=== PATIENT | female | born 1990 | race Caucasian/White ===

== ENCOUNTER 2017-06-24 14:17 | Observation (INO) ==
[2017-06-24 12:55] LABS: Bilirubin,Urine Small (Negative); Blood,Urine Negative (Negative); Color,Urine Yellow (Yellow); Glucose,Urine (UA) Normal (Normal); Ketones,Urine >=160 mg/dL (Negative); Leukocyte Esterase,Urine Small (Negative); Nitrite,Urine Negative (Negative); Protein,Urine 30 mg/dL (Neg-Trace); Specific Gravity,Urine 1.025 (1.010-1.025); Urobilinogen,Urine Normal (Normal)
[2017-06-24] MEDS: Ringers Solution, Lactated 1,000 ML IVC SCH (13:00)
[2017-06-24] MEDS: Ondansetron 4 MG/2 ML VIAL IVP SCH (13:00)
[2017-06-24 13:01] LABS: Basophils # 0.1 K/mcL (0.0-0.2); Basophils % 0.4 %; Eosinophils % 0.1 %; Hemoglobin 13.9 g/dL (11.5-15.4); Immature Granulocytes % 1.4 % (0-4); Lymphocytes # 0.6 K/mcL (0.6-4.6); Lymphocytes % 3.3 %; Mean Corpuscular HGB Conc 33.9 g/dL (31.6-35.5); Mean Corpuscular Hemoglobin 28.3 pg (28.0-33.3); Mean Corpuscular Volume 83.5 fL (83.0-100.0); Monocytes # 0.6 K/mcL (0.0-1.3); Neutrophils # 16.7 K/mcL (1.6-8.9); Platelet Count 237 K/mcL (140-400); Red Blood Count 4.91 M/mcL (3.82-4.97); Red Cell Distribution Width 12.9 % (11.5-14.5); Segmented Neutrophils % 91.8 %
--- NOTE | 2017-06-24 13:01 | OB/GYN History & Physical ---
Date of Encounter: 06/24/17 Time of Encounter: 12:52 Assessment and Plan (1) Vomiting and diarrhea Current visit: Yes Status: Acute Patient reports Vomiting and Diarrhea since 0200 this morning. LR bolus Zofran CBC BMP Urinalysis UDS monitoring (2) 34 weeks gestation of Current visit: Yes Status: Acute Patient is 34w1d History of Present Illness Chief complaint: vomiting HPI: Ms. Bernard is a 27 year old female at 34w1d present to L&D for vomiting and diarrhea. She states that this has been present since 0200 this morning. She states the vomiting has been worse than the diarrhea. She states that she has been vomiting every half hour. States that her was sick with the same thing last night but has resolved. Denies any blood in her vomit or stool. Denies any contractions, loss of fluid, vaginal bleeding or discharge. Denies any complications with the . Reports good movement but is variable which is normal for her. States that she is having some upper abdominal pain since she has been vomiting. Blood type-O Positive T Pallidum-Negative HIV negative Rubella IgG Antibody Positive Varicella IgG antibody Positive Hep B Nonreactive N Gonorrhoeae not detected Chlamydia Negative I examined this patient and my medical decision-making was reviewed with the Resident Physician. I agree with the documented findings, disposition and treatment plan as described except to the extent set forth below. MAGDALENE Taylor Past Med Surg Social Fam HX - Past Medical History Medical history: no medical history Psychiatric history: no psych history - Past Surgical History Surgical History: other - Social History Smoking Status: Never smoker Alcohol use: none Drug use: none - Family History Father Hx Family Cardiac Disorders: Yes (HTN) Obstetrical History - Pregnancies : 2 Para: 1 Livin - History/Complications History/Complications: C section for her first Medications and Allergies Pnv95/Iron Fum/Folic Acid [ Caplet] 1 each PO DAILY 11/19/15 [History] 3 Allergy/AdvReac Type Severity Reaction Status Date / Time No Known Allergies Allergy Verified 11/19/15 17:12 Review of System OB All systems PM: reviewed and no additional remarkable complaints except as stated - Gastrointestinal Gastrointestinal: abdominal pain (Upper abdominal pain from vomiting), diarrhea , nausea, vomiting Exam - Constitutional Constitutional: well developed, well nourished, no acute distress, average body habitus - HEENT HEENT: Mucus Membranes Moist - Neck Neck exam: full ROM, normal inspection - Lungs Respiratory exam: CTAB - Cardiovascular Cardiovascular exam: RRR, +S1, +S2 - Abdomen Abdomen: Present: bowel sounds normal, gravid. Absent: non tender (Upper abdominal tenderness ) - Extremities Extremities exam: full ROM Results Result Diagrams: 06/24/17 12:43 06/24/17 12:43 All other labs normal. - VTE Reasons for not Prescribing Prophylaxis: Treatment not Indicated - Low risk for VTE
[2017-06-24 13:03] LABS: Carbon Dioxide 18 mEq/L (19-29); Chloride 106 mEq/L (98-109); Potassium 3.7 mEq/L (3.5-4.5); Sodium 137 mEq/L (136-145)
[2017-06-24 13:04] LABS: Clarity,Urine Hazy (Clear)
[2017-06-24 13:07] LABS: Bacteria,Urine Moderate per hpf (None-Few); Mucus,Urine Moderate (Few); RBC,Urine 0-3 per hpf (0-3); Squamous Epithelial Cell,Urine Many per lpf (None-Few); WBC,Urine 15-30 per hpf (0-3)
[2017-06-24 13:08] LABS: Amorphous Sediment,Urine Few (Few)
[2017-06-24 13:18] LABS: Amphetamine Screen,Urine Negative ng/mL (Cutoff=1000); Barbiturate Screen,Urine Negative ng/mL (Cutoff=200); Benzodiazepines Screen,Urine Negative ng/mL (Cutoff=200); Cannabinoid Screen,Urine Negative ng/mL (Cutoff = 50); Cocaine Screen,Urine Negative ng/mL (Cutoff= 300); Opiate Screen,Urine Negative ng/mL (Cutoff=300); Phencyclidine Screen,Urine Negative ng/mL (Cutoff=25)
[~2017-06-24 14:17] MED LIST: Ondansetron 4 MG/2 ML VIAL ONE; Promethazine 50 MG in Ringers Solution, Lactated 1,000 ML IVPB SCH; Ringers Solution, Lactated 1,000 ML IVC SCH; Ringers Solution, Lactated 1,000 ML ONE
[2017-06-24] MEDS ORDERED: Acetaminophen 325 MG TABLET PO PRN (17:03)
--- NOTE | 2017-06-24 19:34 | OB/GYN Progress Note ---
Date of Encounter: 06/24/17 Time of Encounter: 18:58 - Assessment and Plan (1) Vomiting and diarrhea Current Visit: Yes Status: Acute Patient reports Vomiting and Diarrhea since 0200 this morning. LR bolus Zofran CBC BMP Urinalysis UDS monitoring (2) 34 weeks gestation of Current Visit: Yes Status: Acute Patient is 34w1d Subjective - Subjective Principal diagnosis: Vomiting and diarrhea Interval history: Patient in bed. Patient tolerating advanced diet but reports she overall doesn' t feel well. Patient has not had any diarrhea since leaving her house earlier today. Patient has not vomited since being in labor and delivery. Patient denies urinary symptoms, abdominal tenderness, SOB, cough or sore throat. Patient has a noted low grade fever despite 650mg po Acetaminophen. Will swab for influenza at this time. Patient reports +FM, denies contractions or abdominal cramping. Discussed patient with Dr. Jimenes. No new orders at this time. Antepartum ROS: movement normal, no loss of fluid, no vaginal bleeding, no contractions Objective - Vital Signs Vital Signs: Vital Signs Temp Pulse Resp BP Pulse Ox 06/24/17 18:58 100.9 F H 06/24/17 17:07 100.3 F H 130 14 120/71 99 06/24/17 14:30 98.8 F 112 14 117/69 97 Intake and Output 06/24/17 06/24/17 06/24/17 07:59 15:59 23:59 Intake Total 35 / 35 Balance 35 / 35 Intake: Oral 35 / 35 Other: Weight 110.2 kg Patient Weight 06/24/17 23:59 Weight 110.2 kg - Labs Labs: Abnormal lab results WBC 18.2 K/mcL (4.3-11.1) H 06/24/17 12:43 Neutrophils # 16.7 K/mcL (1.6-8.9) H 06/24/17 12:43 Carbon Dioxide 18 mEq/L (19-29) L 06/24/17 12:43 Urine Clarity Hazy (Clear) A 06/24/17 12:43 Urine Protein 30 mg/dL (Neg-Trace) H 06/24/17 12:43 Urine Ketones >=160 mg/dL (Negative) H 06/24/17 12:43 Urine Bilirubin Small (Negative) H 06/24/17 12:43 Ur Leukocyte Esterase Small (Negative) H 06/24/17 12:43 Urine Microscopic WBC 15-30 per hpf (0-3) H 06/24/17 12:43 Ur Squamous Epith Cells Many per lpf (None-Few) H 06/24/17 12:43 Urine Bacteria Moderate per hpf (None-Few) H 06/24/17 12:43 Urine Mucus Moderate (Few) H 06/24/17 12:43 Ur Culture Indicated? YES (NO) A 06/24/17 12:43
[2017-06-24] MEDS ORDERED: Pyridoxine (B-6) 50 MG in Ringers Solution, Lactated 1,000 ML IVPB SCH (20:00)
[2017-06-24] MEDS ORDERED: Ringers Solution, Lactated 500 ML IVC ONE (20:11)
[2017-06-25] MEDS: Ondansetron 4 MG/2 ML VIAL IVP SCH ×2 (01:29→06:12)
[2017-06-25] MEDS: Ringers Solution, Lactated 1,000 ML IVC SCH (07:06)
--- NOTE | 2017-06-25 08:31 | Discharge Summary ---
Date of Encounter: 06/25/17 Time of Encounter: 08:31 - Discharge Diagnosis (1) Vomiting and diarrhea Priority: Primary Status: Acute Comments: Patient states that she is doing much better. She denies any nause, vomiting or diarrhea at this time. States that she has been able to eat and drink without any issues. Denies any contractions, loss of fluid or vaginal bleeding. Reports good movement Patient will be discharged home Continue to drink fluids Zofran q8hr prn for nausea at home. (2) 34 weeks gestation of Priority: Secondary Status: Acute Comments: Patient is 34w2d. - Discharge Medications Prescriptions: Ondansetron [Zofran] 4 mg PO Q8HR PRN #6 vial PRN Reason: Nausea Home Medications: Pnv95/Iron Fum/Folic Acid [ Caplet] 1 each PO DAILY 11/19/15 [History] Ondansetron [Zofran] 4 mg PO Q8HR PRN #6 vial 06/25/17 [Rx] Allergies/Adverse Reactions: 3 Allergy/AdvReac Type Severity Reaction Status Date / Time No Known Allergies Allergy Verified 11/19/15 17:12 Data Procedures and tests throughout hospitalization: Laboratory Tests 06/24/17 06/24/17 06/24/17 12:43 12:43 12:43 WBC 18.2 H RBC 4.91 Hgb 13.9 Hct 41.0 MCV 83.5 MCH 28.3 MCHC 33.9 RDW 12.9 Plt Count 237 MPV 10.0 Immature Gran % 1.4 Seg Neutrophils % 91.8 Lymphocytes % 3.3 Monocytes % 3.0 Eosinophils % 0.1 Basophils % 0.4 Neutrophils # 16.7 H Lymphocytes # 0.6 Monocytes # 0.6 Eosinophils # 0.0 Basophils # 0.1 Sodium Potassium Chloride Carbon Dioxide Urine Color Yellow Urine Clarity Hazy A Urine pH 6.0 Ur Specific [place] 1.025 Urine Protein 30 H Urine Glucose (UA) Normal Urine Ketones >=160 H Urine Blood Negative Urine Nitrite Negative Urine Bilirubin Small H Urine Urobilinogen Normal Ur Leukocyte Esterase Small H Urine Microscopic RBC 0-3 Urine Microscopic WBC 15-30 H Ur Squamous Epith Cells Many H Amorphous Sediment Few Urine Bacteria Moderate H Urine Mucus Moderate H Ur Culture Indicated? YES A Urine Opiates Screen Negative Ur Barbiturates Screen Negative Ur Phencyclidine Scrn Negative Ur Amphetamines Screen Negative U Benzodiazepines Scrn Negative Urine Cocaine Screen Negative U Marijuana (THC) Screen Negative 06/24/17 12:43 WBC RBC Hgb Hct MCV MCH MCHC RDW Plt Count MPV Immature Gran % Seg Neutrophils % Lymphocytes % Monocytes % Eosinophils % Basophils % Neutrophils # Lymphocytes # Monocytes # Eosinophils # Basophils # Sodium 137 Potassium 3.7 Chloride 106 Carbon Dioxide 18 L Urine Color Urine Clarity Urine pH Ur Specific [place] Urine Protein Urine Glucose (UA) Urine Ketones Urine Blood Urine Nitrite Urine Bilirubin Urine Urobilinogen Ur Leukocyte Esterase Urine Microscopic RBC Urine Microscopic WBC Ur Squamous Epith Cells Amorphous Sediment Urine Bacteria Urine Mucus Ur Culture Indicated? Urine Opiates Screen Ur Barbiturates Screen Ur Phencyclidine Scrn Ur Amphetamines Screen U Benzodiazepines Scrn Urine Cocaine Screen U Marijuana (THC) Screen Labs on day of discharge: Labs from last 24 hours 06/24/17 06/24/17 06/24/17 12:43 12:43 12:43 WBC 18.2 H RBC 4.91 Hgb 13.9 Hct 41.0 MCV 83.5 MCH 28.3 MCHC 33.9 RDW 12.9 Plt Count 237 MPV 10.0 Immature Gran % 1.4 Seg Neutrophils % 91.8 Lymphocytes % 3.3 Monocytes % 3.0 Eosinophils % 0.1 Basophils % 0.4 Neutrophils # 16.7 H Lymphocytes # 0.6 Monocytes # 0.6 Eosinophils # 0.0 Basophils # 0.1 Sodium 137 Potassium 3.7 Chloride 106 Carbon Dioxide 18 L Urine Color Yellow Urine Clarity Hazy A Urine pH 6.0 Ur Specific [place] 1.025 Urine Protein 30 H Urine Glucose (UA) Normal Urine Ketones >=160 H Urine Blood Negative Urine Nitrite Negative Urine Bilirubin Small H Urine Urobilinogen Normal Ur Leukocyte Esterase Small H Urine Microscopic RBC 0-3 Urine Microscopic WBC 15-30 H Ur Squamous Epith Cells Many H Amorphous Sediment Few Urine Bacteria Moderate H Urine Mucus Moderate H Ur Culture Indicated? YES A Urine Opiates Screen Ur Barbiturates Screen Ur Phencyclidine Scrn Ur Amphetamines Screen U Benzodiazepines Scrn Urine Cocaine Screen U Marijuana (THC) Screen 06/24/17 12:43 WBC RBC Hgb Hct MCV MCH MCHC RDW Plt Count MPV Immature Gran % Seg Neutrophils % Lymphocytes % Monocytes % Eosinophils % Basophils % Neutrophils # Lymphocytes # Monocytes # Eosinophils # Basophils # Sodium Potassium Chloride Carbon Dioxide Urine Color Urine Clarity Urine pH Ur Specific [place] Urine Protein Urine Glucose (UA) Urine Ketones Urine Blood Urine Nitrite Urine Bilirubin Urine Urobilinogen Ur Leukocyte Esterase Urine Microscopic RBC Urine Microscopic WBC Ur Squamous Epith Cells Amorphous Sediment Urine Bacteria Urine Mucus Ur Culture Indicated? Urine Opiates Screen Negative Ur Barbiturates Screen Negative Ur Phencyclidine Scrn Negative Ur Amphetamines Screen Negative U Benzodiazepines Scrn Negative Urine Cocaine Screen Negative U Marijuana (THC) Screen Negative Date of admission: 06/24/17 12:11 Primary care physician: Freida Chahal CNP Discharging clinician: Ruben Guerra Anticipated date of discharge: 06/25/17 - Patient Status Disposition: Home, Self-Care Condition: Good Functional capacity at discharge: independent ambulation Overall status at discharge: patient is back to baseline - Discharge Instructions Instructions: Acute Nausea and Vomiting (DC) Follow Up With: Freida Chahal CNP [Primary Care Provider] - - Diet and Activity Activity: resume usual activities as tolerated Diet: advance to your usual diet 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: other (Vomiting and diarrhea) Discharge diagnosis: other (Vomiting and Diarrhea) Time Attestation: Total time spent providing and/or coordinating discharge services: Time Spent: Less than 30 minutes Exam - Constitutional Vitals: Temp Pulse Resp BP Pulse Ox 98.0 F 101 16 113/62 97 06/25/17 05:30 06/25/17 05:30 06/25/17 05:30 06/25/17 05:30 06/25/17 05:30 General appearance IM: A&O X 3 - Respiratory Respiratory exam: Present: CTAB - Cardiovascular Cardiovascular exam IM: Present: RRR, +S1, +S2 - GI/Abdominal GI/Abdominal exam IM: normal bowel sounds - Extremities Exam Extremities exam IM: Present: full ROM, normal capillary refill, normal inspection. Absent: calf tenderness - Neurological Exam Neurological exam: alert, oriented X3 - VTE Reasons for not Prescribing Prophylaxis: Treatment not Indicated - Low risk for VTE
[2017-06-25 08:47] VITALS: BP 115/75
[2017-06-25 08:48] LABS: BUN/Creatinine Ratio 12 (6-26); Blood Urea Nitrogen 8 mg/dL (7-20); Calcium 8.6 mg/dL (8.6-10.8); Glucose 96 mg/dL (70-99); Osmolality,Calculated 282 (280-300); eGFR For African Americans > 60 (> 60); eGFR For Non-African Americans > 60 (> 60)
== END 2017-06-25 10:27 | disposition home or self-care (01) ==
LOC: 1NENULAB → 1NENUOBS 14:17
PROVIDERS: ADMIT Obstetrics & Gynecology; ATTEND Obstetrics & Gynecology

== ENCOUNTER 2017-07-28 09:43 | Inpatient (IN) ==
[2017-07-28] MEDS ORDERED: Ringers Solution, Lactated 1,000 ML IVC ONE (09:55)
[2017-07-28] MEDS ORDERED: Oxytocin 20 units/ LR 1000 mL 20 UNIT/1,000 ML BAG IVC ONE (09:55)
[2017-07-28] MEDS ORDERED: Famotidine 20 MG/2 ML VIAL IVP ONE (09:55)
[2017-07-28] MEDS ORDERED: Metoclopramide 10 MG/2 ML VIAL IVP ONE (09:55)
[2017-07-28] MEDS ORDERED: CeFAZolin Premix DUPLEX 2,000 MG/50 ML BAG IVPB ONE (09:55)
[2017-07-28] MEDS ORDERED: Oxytocin 20 units/ LR 1000 mL 20 UNIT/1,000 ML BAG IVC SCH ×2 (10:00→17:41)
[2017-07-28] MEDS ORDERED: Ringers Solution, Lactated 1,000 ML IVC SCH ×3 (10:00→17:41)
[2017-07-28 10:19] LABS: Basophils # 0.1 K/mcL (0.0-0.2); Basophils % 0.5 %; Eosinophils # 0.2 K/mcL (0.0-0.6); Eosinophils % 1.4 %; Hematocrit 41.3 % (35.3-44.9); Hemoglobin 14.3 g/dL (11.5-15.4); Immature Granulocytes % 1.7 % (0-4); Lymphocytes # 2.4 K/mcL (0.6-4.6); Lymphocytes % 18.5 %; Mean Corpuscular HGB Conc 34.6 g/dL (31.6-35.5); Mean Corpuscular Hemoglobin 29.1 pg (28.0-33.3); Mean Corpuscular Volume 83.9 fL (83.0-100.0); Mean Platelet Volume 10.2 fL (9.4-12.4); Monocytes # 0.6 K/mcL (0.0-1.3); Monocytes % 4.8 %; Neutrophils # 9.5 K/mcL (1.6-8.9); Platelet Count 256 K/mcL (140-400); Red Blood Count 4.92 M/mcL (3.82-4.97); Red Cell Distribution Width 13.2 % (11.5-14.5); Segmented Neutrophils % 73.1 %
--- NOTE | 2017-07-28 10:35 | Anesthesia Evaluation PreOp ---
Date of Encounter: 07/28/17 Time of Encounter: 10:33 - Past History Planned Operation: repeat C/S Cardiac History: Denies any Significant Hx Pulmonary History: Denies Any Significant HX LOSS PREVENTION ASSOCIATE History: Denies Any Significant HX Other Medical History: Denies Any Significant HX Anesthesia History: No Prior Anesthetic Complications, Past Anesthesia (C/S, margo) : Yes Alcohol Use: none Drug use: none Medications and Allergies Pnv95/Iron Fum/Folic Acid [ Caplet] 1 each PO DAILY 11/19/15 [History] Ondansetron [Zofran] 4 mg PO Q8HR PRN #6 vial 06/25/17 [Rx] 3 Allergy/AdvReac Type Severity Reaction Status Date / Time No Known Allergies Allergy Verified 11/19/15 17:12 - Meds/Allergy Pre-op Review Medications Reviewed: Yes Allergies Reviewed: Yes Beta Blockers on Current Med List: No Anesthesia Results - Labs 07/28/17 10:00 Anesthesia Exam NPO (# of Hours): 12hrs - HEENT Pupil (Motor): EOMI Mallampati: II Teeth: Normal Oral Opening: Greater than 3 - LOSS PREVENTION ASSOCIATE LOC: Oriented LOSS PREVENTION ASSOCIATE Motor: Normal RUE, Normal LUE, Normal RLE, Normal LLE, Normal Face LOSS PREVENTION ASSOCIATE Sensory: Normal: RUE, LUE, RLE, LLE, Face - Cardiac Rhythm: Regular Murmur: None - Pulmonary Breath Sounds: bilateral Clear Respiratory Effort: Symmetrical Anesthesia Assess/Plan ASA Score: 1 Modified Ira Scale for Level of Consciousness: Cooperative, oriented, and tranquil Anesthetic Plan: Regional (spinal) Monitoring Plan: Standard Monitors Recovery Plan: PACU (agrees to SAB)
--- NOTE | 2017-07-28 11:13 | OB/GYN History & Physical ---
Date of Encounter: 07/28/17 Time of Encounter: 11:08 Assessment and Plan (1) 39 weeks gestation of Current visit: Yes Status: Acute Here for repeat scheduled Ancef for surgical prophylaxis monitoring - baseline 130 with variability and accels - category I (2) History of section Current visit: Yes Status: Acute Previous at term due to failure to progress. Consent obtained last week for repeat after discussing the risks, benefits,and alternatives at length. History of Present Illness Chief complaint: Scheduled HPI: Ms. Bernard is a 27 year old female at 39w0d presenting to L&D for scheduled repeat . She reports good movement. Denies contractions, LOF, vaginal bleeding, or vaginal discharge. Reports no problems with this . No other past medical history. Denies fevers, chills, headaches, blurry vision, dyspnea, abdominal pain, dysuria, or edema. Blood type O+ GBS positive Rubella Immune Varicella Immune All other serologies negative Past Med Surg Social Fam HX - Past Medical History Source: patient Medical history: no medical history Psychiatric history: no psych history - Past Surgical History Surgical History: , other - Social History Smoking Status: Never smoker Smokeless Tobacco Status: No Alcohol use: none Drug use: none - Family History Mother Living Status: Still Living Hx Family Cardiac Disorders: No Hx Family Respiratory Disorders: No Hx Family Cancer: Yes (breast cancer) Hx Family GI Disorders: No Hx Family Genitourinary Disorders: No Hx Family Endocrine Disorder: No Hx Family Musculoskeletal Disorders: No Hx Family Neuromuscular Disorders: No Hx Family Neurologic Disorders: No Hx Family HEENT Disorders: No Hx Family Autoimmune Disorders: No Hx Family Reproductive Disorders: No Hx Family Psychosocial Disorders: No Hx Family Medical Disorders: No Father Hx Family Cardiac Disorders: Yes (HTN) Obstetrical History - Pregnancies : 2 Para: 1 Term: 1 : 0 Ab's: 0 Livin Medications and Allergies Pnv95/Iron Fum/Folic Acid [ Caplet] 1 each PO DAILY 11/19/15 [History] Ondansetron [Zofran] 4 mg PO Q8HR PRN #6 vial 06/25/17 [Rx] 3 Allergy/AdvReac Type Severity Reaction Status Date / Time No Known Allergies Allergy Verified 11/19/15 17:12 Review of System OB All systems PM: reviewed and no additional remarkable complaints except as stated Exam - Constitutional Constitutional: well developed, well nourished, no acute distress, average body habitus - HEENT HEENT: Normocephaly, Mucus Membranes Moist - Lungs Respiratory exam: CTAB - Cardiovascular Cardiovascular exam: RRR, +S1, +S2 - Abdomen Abdomen: Present: bowel sounds normal, gravid, non tender - Extremities Extremities exam: normal capillary refill, normal inspection, pedal edema (mild bilaterally) - Uterus Uterus exam: Present: normal size, normal contour Results Result Diagrams: 07/28/17 10:00 Abnormal lab results WBC 13.0 K/mcL (4.3-11.1) H 07/28/17 10:00 Neutrophils # 9.5 K/mcL (1.6-8.9) H 07/28/17 10:00 All other labs normal. - Attending Attestation I examined this patient and my medical decision-making was reviewed with the Resident Physician. I agree with the documented findings, disposition and treatment plan as described. Vanessa Skinner DO
[2017-07-28] MEDS ORDERED: Morphine Sulfate/PF 5mg/10mL Vial ONE (12:20)
[2017-07-28] MEDS ORDERED: Dexamethasone 4 MG/ML VIAL ONE (12:21)
[2017-07-28] MEDS ORDERED: Ondansetron 4 MG/2 ML VIAL ONE (12:21)
[2017-07-28] MEDS ORDERED: *HR* Oxytocin 10 UNIT/ML VIAL IM ONE (12:22)
[2017-07-28] MEDS ORDERED: *HR* HYDROmorphone (PF) 1 MG/ML SYRINGE IVP PRN ×2 (12:40→14:53)
[2017-07-28] MEDS ORDERED: *HR* Promethazine 25 MG/ML VIAL IVP PRN (12:40)
[2017-07-28] MEDS ORDERED: Ondansetron 4 MG/2 ML VIAL IVP ONE (12:40)
[2017-07-28] MEDS ORDERED: EPHEDrine 50 MG/ML VIAL ONE (12:57)
[2017-07-28] MEDS ORDERED: Ringers Solution, Lactated 1,000 ML ONE (13:15)
--- NOTE | 2017-07-28 13:26 | Anesthesia Procedures ---
Date of Encounter: 07/28/17 Time of Encounter: 12:50 Procedures: Anesthesia - Epidural/Spinal Patient ID/Chart reviewed: Yes Patient examined: Yes OB Eval: Gestational age: 39 OB Eval: : 2 OB Eval: Hx Para: 2 OB Eval: Contractions: Non-stressed pattern Consent Obtained: Yes Supplemental Oxygen: None/Room Air Site Prep: Aseptic Technique, Sterile prep and drape, Povidone-Iodine 1% Patient position: upright Local Anesthetic: Lidocaine 1% Amount of Local Anesthetic used: 3 Interspace Used: L4-L5 Loss of Resistance (CURLY): No Blood: No CSF: Yes Paresthesia: No Spinal Needle Gauge: 25 Spinal Dose: Bupivicaine 0.75% morphine 250mcg Procedure: Spinal dose administered 1st pass in upright position without any immediate noted complications. VSS throughout. Vitals + FHT's: see anesthesia record
--- NOTE | 2017-07-28 14:07 | OB/GYN Procedure Note ---
Section - Date of procedure: 07/28/17 Preop diagnosis: desires repeat Post-op diagnosis: same Procedure: repeat low transverse Surgeon: Vanessa Skinner Estimated blood loss (cc): 400 Was there an diploma medical assistant present: Yes Lineman Service Or Work Dispatcher: Charlotte Nur Cpr Ambulance Driver: Robert Smith Anesthesia Type: Spinal section complications: none Disposition: L&D Recovery Room Specimens: Placenta (hold) - Infant (s) A Delivery Date: 07/28/17 Infant Delivery Time: 13:16 Presentation: vertex Gender: Female Viability: Viable Pounds: 7 Ounces: 3 Gram Weight: 3.25 kg at 1 minute: 8 at 5 minutes: 9 Shoulder Dystocia: not encountered Specimens collected: cord blood Placenta: spontaneous Cord: 3 umbilical vessels - Narrative Narrative: Patient was taken to the operative suite and placed under spinal anesthetic. She was then prepped and draped in normal sterile fashion in the dorsal supine position. Timeout was then performed. Antibiotics were given at room time. SCDs are on and active. Pfannenstiel skin incision is then made and carried through to underlying layer of fascia with the Bovie. The fascia was then incised in the midline and incision extended laterally with the Lopez scissors. The fascia was tented up and dissected off the rectus muscles sharply. The rectus muscles were in the midline and the peritoneum was tented up and entered sharply with the Metzenbaum scissors. The peritoneal incision was then extended bluntly. The bladder blade was then inserted and the vesicouterine peritoneum was entered sharply. Bladder flap was created digitally. A low transverse uterine incision was then made. The vertex was brought to the incision and fundal pressure was applied. The head was not delivered with fundal pressure and a vacuum was applied with 3 quick pop offs at 500 mm Hg. Fundal pressure was again applied with delivery of the head. There was no nuchal cord. Cord was clamped and cut. was handed to waiting nursery staff. Placenta delivered spontaneously complete and intact with a three-vessel cord. The uterus was cleared of all clots and debris using moist laparotomy sponge. The uterine incision was then closed using 0 Vicryl in a running locked fashion. A second layer of the same suture was used to obtain excellent hemostasis. The abdomen was then cleared of all clots and debris using copious irrigation. The fascial incision was then closed using 0 Vicryl in a running fashion. The subcuticular area was reapproximated with 3-0 vicryl in a running fashion.The skin was closed using 4-0 Vicryl in a subcuticular fashion. Aaron was then placed. Mother and infant taken to recovery in stable condition.
[2017-07-28] MEDS ORDERED: Ondansetron 4 MG/2 ML VIAL IVP PRN ×2 (14:53→17:41)
[2017-07-28] MEDS ORDERED: Ibuprofen 400 MG TABLET PO PRN (14:53)
[2017-07-28] MEDS ORDERED: *HR* Morphine 2 MG/ML SYRINGE IVP PRN (14:53)
--- NOTE | 2017-07-28 15:03 | Anesthesia Evaluation Post Op ---
Date of Encounter: 07/28/17 Time of Encounter: 15:00 - Vital Signs Vital Signs: BP123/62 P85 T 98.4 R 16 - Lungs Lungs: Clear Ascult./Percussion - Airway Airway: Non-obstructed - Cardiovascular Regular Rate - Mental Status Mental Status: Alert & Oriented, Answers Appropriately - Pain Pain Scale: 2 Pain Scale used: Numeric (1 - 10) - Nausea Vomiting Nausea Vomiting: Not Present - Hydration Hydration: NPO, Arvizu catheter - Discharge PostOp Status: Transfer Patient to floor
[2017-07-28] MEDS ORDERED: *HR* OxyCODONE/APAP 5/325 TABLET PO PRN (17:41)
[2017-07-28] MEDS ORDERED: Acetaminophen 325 MG TABLET PO PRN (17:41)
[2017-07-28] MEDS ORDERED: Sennosides 8.6 MG TABLET PO PRN (17:41)
[2017-07-28] MEDS ORDERED: Metoclopramide 10 MG/2 ML VIAL IVP PRN (17:41)
[2017-07-28] MEDS ORDERED: Simethicone 80 MG TAB.CHEW PO PRN (17:41)
--- NOTE | 2017-07-29 10:14 | OB/GYN Progress Note ---
Date of Encounter: 07/29/17 Time of Encounter: 10:17 - Assessment and Plan (1) S/P Current Visit: No Status: Acute Plan: - vitals stable. - continue to encourage - encouraged use of pain medication - encourage ambulation - continue current management and supportive care - Anticipate d/c home tomorrow (2) 39 weeks gestation of Current Visit: Yes Status: Acute (3) History of section Current Visit: Yes Status: Acute Subjective - Subjective Interval history: Ginger is a 27 y/o female POD#1 s/p CS currently stable and doing well. Patient states that she has not had any pain medication and is not in pain until she gets up. Denies abnormal lochia. Patient tolerating food without N/V. + void. Adriana dressing has been changed once due to saturation. Patient reports: appetite normal, voiding normally, pain well controlled, ambulating normally : doing well, nursing well Objective - Vital Signs Latest vital signs: Vital Signs Temp Pulse Pulse Resp BP Pulse Ox 07/29/17 09:04 98.6 F 70 16 101/68 98 07/29/17 04:30 98.0 F 80 16 106/62 96 07/29/17 01:00 98.1 F 74 16 103/58 96 07/28/17 19:25 98.0 F 87 16 112/60 98 07/28/17 18:15 97.9 F 85 85 16 112/57 98 07/28/17 17:15 98.0 F 86 86 16 111/58 97 07/28/17 16:45 98.0 F 89 89 16 116/71 96 Intake and Output 07/28/17 07/29/17 07/29/17 23:59 07:59 15:59 Intake Total 640 / 640 Output Total 125 / 125 1300 / 1300 600 / 600 Balance -125 / -125 -660 / -660 -600 / -600 Intake: Oral 640 / 640 Output: Urine 600 / 600 Catheter 125 / 125 1300 / 1300 Other: Weight 107.048 kg Patient Weight 07/29/17 23:59 Weight 107.048 kg - Exam Lungs: bilateral: normal Chest: Normal S1, Normal S2 Extremities: Present: normal Abdomen: Present: normal appearance, soft Incision: Present: normal, dry, dressed (ADRIANA dressing, largest area of saturation ~2cm ) Uterus: Present: normal - Labs Labs: Laboratory Results - last 24 hr 07/28/17 10:00 WBC 13.0 H RBC 4.92 Hgb 14.3 Hct 41.3 MCV 83.9 MCH 29.1 MCHC 34.6 RDW 13.2 Plt Count 256 MPV 10.2 Immature Gran % 1.7 Seg Neutrophils % 73.1 Lymphocytes % 18.5 Monocytes % 4.8 Eosinophils % 1.4 Basophils % 0.5 Neutrophils # 9.5 H Lymphocytes # 2.4 Monocytes # 0.6 Eosinophils # 0.2 Basophils # 0.1
[2017-07-29] MEDS: Ibuprofen 600 MG TABLET PO PRN ×2 (10:53→17:00)
[2017-07-29] MEDS: Prenatal Vit/FA 1 EACH TABLET PO SCH (10:53)
[2017-07-30] MEDS: Ibuprofen 600 MG TABLET PO PRN ×2 (00:55→08:39)
--- NOTE | 2017-07-30 02:01 | Discharge Summary ---
Date of Encounter: 07/30/17 Time of Encounter: 07:25 - Discharge Diagnosis (1) S/P Priority: Secondary Status: Acute (2) 39 weeks gestation of Priority: Primary Status: Acute (3) History of section Priority: Secondary Status: Acute - Discharge Medications Prescriptions: OxyCODONE/APAP 5/325 [Percocet 5/325 MG] 1 each PO Q4HR PRN #27 tablet PRN Reason: Moderate pain 4-6 Acetaminophen [Tylenol] 325 mg PO Q6HR PRN #40 tablet PRN Reason: Fever/Pain Ibuprofen [Motrin] 600 mg PO Q6HR PRN #40 tablet PRN Reason: Cramping Docusate [Colace] 100 mg PO BID #10 capsule Home Medications: Pnv95/Iron Fum/Folic Acid [ Caplet] 1 each PO DAILY 11/19/15 [History] Ondansetron [Zofran] 4 mg PO Q8HR PRN #6 vial 06/25/17 [Rx] Acetaminophen [Tylenol] 325 mg PO Q6HR PRN #40 tablet 07/30/17 [Rx] Docusate [Colace] 100 mg PO BID #10 capsule 07/30/17 [Rx] Ibuprofen [Motrin] 600 mg PO Q6HR PRN #40 tablet 07/30/17 [Rx] OxyCODONE/APAP 5/325 [Percocet 5/325 MG] 1 each PO Q4HR PRN #27 tablet 07/30/17 [Rx] Allergies/Adverse Reactions: 3 Allergy/AdvReac Type Severity Reaction Status Date / Time No Known Allergies Allergy Verified 11/19/15 17:12 Data Procedures and tests throughout hospitalization: Laboratory Tests 07/28/17 10:00 WBC 13.0 H RBC 4.92 Hgb 14.3 Hct 41.3 MCV 83.9 MCH 29.1 MCHC 34.6 RDW 13.2 Plt Count 256 MPV 10.2 Immature Gran % 1.7 Seg Neutrophils % 73.1 Lymphocytes % 18.5 Monocytes % 4.8 Eosinophils % 1.4 Basophils % 0.5 Neutrophils # 9.5 H Lymphocytes # 2.4 Monocytes # 0.6 Eosinophils # 0.2 Basophils # 0.1 Date of admission: 07/28/17 09:43 Primary care physician: Freida Chahal CNP Discharging clinician: Sonya Caldera Anticipated date of discharge: 07/30/17 - Patient Status Disposition: Home, Self-Care Condition: Good Functional capacity at discharge: independent ambulation Overall status at discharge: patient is progressing back to baseline - Discharge Instructions Follow Up With: Freida Chahal, LABOR DELIVERY RN [Primary Care Provider] - - Diet and Activity Activity: increase activity as tolerated Diet: advance to your usual diet Hospital Course Reason for admission: section Delivery: section Episiotomy: none Laceration: none Other procedures: none complications: none Discharge diagnosis: IUP at term delivered baby: female Hospital course: Ms. Bernard is a 27 year old female at 39w0d presented to L&D for scheduled repeat . Patient tolerated well with no complications. Patient's pain is well controlled, + voiding, + gas, normal lochia. ADRIANA dressing in place. OARRS checked and no concerns. Patient is stable and ready for discharge. F/u with Dr. Skinner in 2 weeks. Date of procedure: 07/28/17 Preop diagnosis: desires repeat Post-op diagnosis: same Procedure: repeat low transverse Surgeon: Vanessa Skinner Estimated blood loss (cc): 400 Was there an diet assistant present: Yes District Manager: Charlotte Nur Echo Tech: Robert Smith Anesthesia Type: Spinal section complications: none Disposition: L&D Recovery Room Specimens: Placenta (hold) - Infant (s) A Delivery Date: 07/28/17 Delivery Time: 13:16 Presentation: vertex Gender: Female Viability: Viable Pounds: 7 Ounces: 3 Gram Weight: 3.25 kg at 1 minute: 8 at 5 minutes: 9 Shoulder Dystocia: not encountered Specimens collected: cord blood Placenta: spontaneous Cord: 3 umbilical vessels Time Attestation: Total time spent providing and/or coordinating discharge services: - VTE Documentation of Mechanical Device: Intermittent pneumatic compression device - Attending Attestation I examined this patient and my medical decision-making was reviewed with the Resident Physician. I agree with the documented findings, disposition and treatment plan as described except to the extent set forth below. MAGDALENE Taylor Exam - Constitutional Vitals: Temp Pulse Resp BP Pulse Ox 97.7 F 61 14 109/63 98 07/29/17 21:35 07/29/17 21:35 07/29/17 21:35 07/29/17 21:35 07/29/17 21:35 General appearance IM: pleasant, no acute distress - Respiratory Respiratory exam: Present: CTAB - Cardiovascular Cardiovascular exam IM: Present: RRR - GI/Abdominal GI/Abdominal exam IM: soft Incision: normal, dressed (ADRIANA dressing in place with increased discharge on dressing) - Uterine Tone: Firm Uterus Position: 3 Fingers Below Umbilicus - Extremities Exam Extremities exam IM: Present: normal inspection. Absent: pedal edema - Neurological Exam Neurological exam: alert, no focal deficits
[2017-07-30 08:38] VITALS: BP 118/70
[2017-07-30] MEDS: Prenatal Vit/FA 1 EACH TABLET PO SCH (08:39)
== END 2017-07-30 13:12 | disposition home or self-care (01) | DRG 766 ==
LOC: 1NENULAB 09:43 → 1NENUOBS 17:00
PROVIDERS: ADMIT Obstetrics & Gynecology; ATTEND Obstetrics & Gynecology